=== PATIENT | male | born 1940 | race Caucasian/White ===

== ENCOUNTER 2024-10-01 08:21 | Day surgery (SDC) | payer MEDICARE ==
[2024-09-22 09:23] VITALS: BP 109/46
[~2024-10-01] VITALS: Ht 177.8 cm; Wt 98.0 kg
--- NOTE | ~2024-10-01 | OR ---
[facility] [address] [place], [place] [address] Draft DATE OF OPERATION: 10/01/2024 SURGEON: Narda Alvarez DO PREOPERATIVE DIAGNOSIS: Abdominal pain and change in bowel habits. POSTOPERATIVE DIAGNOSES: 1. Abdominal pain and change in bowel habits with gastroesophageal junction mass and grade C esophagitis. 2. Gastritis. 3. 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 4. Polyp at 75 cm. 5. Polyp at 20 cm. 6. Polyp at 50 cm. 7. Also diverticulosis. PROCEDURE PERFORMED: 1. Esophagogastroduodenoscopy with biopsy of distal esophageal mass and random gastric biopsy. 2. Colonoscopy with cold biopsy of the polyps at 15, 20, and 75 cm. ANESTHESIA: IV sedation. ESTIMATED BLOOD LOSS: Minimal. DRAINS: None. COMPLICATIONS: None. DESCRIPTION OF PROCEDURE: The patient was brought to the GI lab, placed in supine position and after induction of IV sedation through preanesthetized oropharynx and a bite block, the Olympus video endoscope was then introduced through the mouth, directed through the length of esophagus and into the distal esophagus. Upon encountering the distal esophagus, LA grade C esophagitis was noted with ulceration present. There was a mass effect noted in PATIENT NAME: CASE,VANESSA FISHER OPERATIVE REPORT DATE OF : 40 REPORT #: [id number] PHYSICIAN: NARDA ALVAREZ DO PCP: GITA JOHNSON MD REPORT IS CONFIDENTIAL AND NOT TO BE RELEASED WITHOUT AUTHORIZATION [facility] [address] [place], [place] [address] Draft this area as well. Multiple biopsies were taken and passed off the field for pathologic review. Hemostasis was maintained. The scope was advanced in the stomach and general x-rays were carried out. Some punctate gastritis noted distally and the random gastric biopsies were then taken and passed off the field for pathologic review. No hiatal hernia was noted. The scope was retroflexed upon itself and no mass effect noted on retroflexion. Scope was advanced through the pylorus, first and second portion of duodenum, and they were essentially unremarkable. Scope was brought back into the stomach. It should be noted that prior to any biopsies, there were streaks of dark blood in the stomach, but no ulcerations. No other intrinsic or extrinsic masses were appreciated other than mass effects at the GE junction. The stomach was decompressed. Scope was withdrawn. The patient was then placed in the left lateral position, padded satisfactory to anesthesia. An Olympus video colonoscope was then introduced into the rectum under direct visualization and insufflated. The scope was advanced through the rectosigmoid, sigmoid colon, descending colon, transverse colon, into the ascending colon, and cecum. The colon was then insufflated and exploration of the mucosal surface was carried out. The ascending colon and cecum had no intrinsic or extrinsic masses noted, no lesions or ulceration appreciated. Scope was brought back into the transverse colon. No intrinsic or extrinsic masses, lesions, or ulcerations were noted. The scope was then brought back into the descending colon at approximately 75 cm. A flat sessile polyp was noted. Multiple biopsies were taken with the cold biopsy forceps and passed off the field. The scope was then brought back through the descending colon to the sigmoid colon, where at approximately 20 cm and 15 cm, 2 separate sessile polyps were noted. Utilizing a cold biopsy forceps, multiple biopsies were taken and passed off the field for pathologic review. There was some sigmoid diverticulosis present as well, but no other intrinsic or extrinsic mass appreciated. The scope was then brought back into the rectosigmoid where no intrinsic or extrinsic masses were noted. The scope was then removed. The patient tolerated the procedure well, and taken to recovery room in satisfactory condition. DO KASHIF Rene/ELEUTERIO /[id number] Copies: PATIENT NAME: CASEVANESSA OPERATIVE REPORT DATE OF : 40 REPORT #: [id number] PHYSICIAN: NARDA ALVAREZ DO PCP: GITA JOHNSON MD REPORT IS CONFIDENTIAL AND NOT TO BE RELEASED WITHOUT AUTHORIZATION [facility] [address] [place] [address] [place], [place] [address] Draft ~ PATIENT NAME: CASE,VANESSA FISHER OPERATIVE REPORT DATE OF : 40 REPORT #: [id number] PHYSICIAN: NARDA ALVAREZ DO PCP: GITA JOHNSON MD REPORT IS CONFIDENTIAL AND NOT TO BE RELEASED WITHOUT AUTHORIZATION
[~2024-10-01 08:21] MED LIST: ADULT ASPIRIN R81 MG PO; ALLOPURINOL300 MG PO; B COMPLEX1 EACH PO; CEFAZOLIN SODIUM 2 GM/20 ML SYR IV SCH; CENTANY30 GM TOP; COSOPT EYE DROP10 ML; DAILY MULTIVIT1 EAC3 PO; FARXIGA5 MG PO; FUROSEMIDE40 MG PO; IBLOOD GLUCOSE TEST STRIP 1 EA TEST VI PRN; LACTATED RINGER'S 1,000 ML IV SCH; LATANOPROST2.5 ML OPTH; LEVOTHYROXINE75 MC1 PO; LIDOCAINE HCL 1% 5 ML SDV INJ ONE; LIPITOR40 MG PO; LOSARTAN POTASS25 MG PO; MECLIZINE HCL12.5 MG PO; METOPROLOL SUCC25 MG PO; METOPROLOL SUCC50 MG PO; NORVASC10 MG PO; TRELEGY ELLIPT1 EACH IH; VENTOLIN HFA18 GM INH
[2024-10-01 08:40] VITALS: BP 164/72
[2024-10-01] MEDS ORDERED: MELATONIN ER10 MG PO (08:45)
[2024-10-01] MEDS ORDERED: LIDOCAINE HCL 2% 5 ML SDV ONE (09:55)
--- NOTE | 2024-10-01 11:27 | NUR ---
10/01/24 Yarelis7 Sangeetha Alanis 1122-PATIENT ARRIVED TO PACU ON 4L NC RR EVEN ORAL AIRWAY IN PLACE PATIENT NONAROUSABLE. SINUS BRADYCARDIA HR 50'S. IVF INFUSING. ABDOMEN ROUND AND SOFT.
[2024-10-01 12:00] VITALS: BP 138/81
--- NOTE | 2024-10-05 15:05 | PATH ---
[facility] [address] [place], [place] [address] Signed SPECIMEN(S): A GE JUNCTION BIOPSY SPECIMEN(S): B RANDOM GASTRIC BIOPSY SPECIMEN(S): C COLON POLYP AT 75 CM SPECIMEN(S): D COLON POLYP AT 20 CM SPECIMEN(S): E COLON POLYP AT 15 CM SPECIMEN SOURCE: A. GE JUNCTION BIOPSY B. RANDOM GASTRIC BIOPSY C. COLON POLYP AT 75 CM D. COLON POLYP AT 20 CM E. COLON POLYP AT 15 CM CLINICAL HISTORY: Pre: Anemia. Post: Esophagitis/gastritis/distal esophageal mass. FINAL PATHOLOGIC DIAGNOSIS: A. GE junction, biopsies - Mildly inflamed cardio fundic type gastric mucosa, negative for intestinal metaplasia. B. Stomach, random biopsies - Unremarkable gastric mucosa, negative for significant inflammation or evidence of intestinal metaplasia. C. Colon polyp at 75 cm - Hyperplastic colonic mucosa. D. Colon polyp at 20 cm - Hyperplastic polyp. E. Colon polyp at 15 cm - Hyperplastic polyp. AMB MICROSCOPIC EXAMINATION: Histologic sections of all submitted blocks are examined by light microscopy. These findings, together with the gross examination, support the pathologic diagnosis. GROSS DESCRIPTION: A. The specimen, labeled and designated "Case, GE junction biopsy," is received in formalin and consists of two brandon soft tissue fragments, ranging from 0.1 cm. Entirely submitted in (A1). B. The specimen, labeled and designated "Case, random gastric biopsy," is PATIENT NAME: CASE,VANESSA FISHER PATHOLOGY DATE OF : 40 REPORT #: [id number] PHYSICIAN: STACEY PATHOLOGY PCP: GITA JOHNSON MD REPORT IS CONFIDENTIAL AND NOT TO BE RELEASED WITHOUT AUTHORIZATION [facility] [address] [place], [place] [address] Signed received in formalin and consists of one brandon soft tissue fragment, 0.3 cm. Entirely submitted in (B1). C. The specimen, labeled and designated "Case, colon polyp at 75 cm," is received in formalin and consists of one brandon soft tissue fragment, 0.2 cm. Entirely submitted in (C1). D. The specimen, labeled and designated "Case, colon polyp at 20 cm," is received in formalin and consists of one brandon soft tissue fragment, 0.2 cm. Entirely submitted in (D1). E. The specimen, labeled and designated "Case, colon polyp at 15 cm," is received in formalin and consists of one brandon soft tissue fragment, 0.2 cm. Entirely submitted in (E1). JS (under the direct supervision of a pathologist) The Gross Description was prepared using a voice recognition system. The report was reviewed for accuracy; however, sound-alike word errors, addition and/or deletions may occur. If there is any question about this report, please contact Client Services. ADDITIONAL NOTES: Immunohistochemical and/or in situ hybridization studies if performed in this case included appropriate positive controls that reacted as expected. This test was developed and its performance characteristics determined by [facility]. It has not been cleared or approved by the U.S. Food and Drug Administration. The FDA has determined that such clearance or approval is not necessary. This test is used for clinical purposes. It should not be regarded as investigational or for research. [facility] is certified under the Clinical Laboratory Improvement Amendments of 1988 (CLIA) as qualified to perform high complexity clinical laboratory testing. PERFORMING LABORATORY: Technical component was performed by [facility], [address] [place] [address] (CLIA# [id number]). [facility] [address] [facility] [id number] Diagnostician: Donna Jaimes MD Pathologist Electronically Signed 10/05/2024 PATIENT NAME: CASEVANESSA PATHOLOGY DATE OF : 40 REPORT #: [id number] PHYSICIAN: STACEY PATHOLOGY PCP: GITA JOHNSON MD REPORT IS CONFIDENTIAL AND NOT TO BE RELEASED WITHOUT AUTHORIZATION [address] [address] Signed Copies: ~ PATIENT NAME: CASEVANESSA PATHOLOGY DATE OF : 40 REPORT #: [id number] PHYSICIAN: STACEY PATHOLOGY PCP: GITA JOHNSON MD REPORT IS CONFIDENTIAL AND NOT TO BE RELEASED WITHOUT AUTHORIZATION
== END 2024-10-01 12:05 | disposition home or self-care (01) ==
LOC: OPS 08:21 → DS 08:21 → OPS 10:30
PROVIDERS: ATTEND Surgery
PROC: 0DBM8ZX Excision of Descending Colon, Via Natural or Artificial Opening Endoscopic, Diagnostic (ICD-10-PCS; 2024-10-01)
PROC: 0DBN8ZX Excision of Sigmoid Colon, Via Natural or Artificial Opening Endoscopic, Diagnostic (ICD-10-PCS; 2024-10-01)
PROC: 0DB38ZX Excision of Lower Esophagus, Via Natural or Artificial Opening Endoscopic, Diagnostic (ICD-10-PCS; principal; 2024-10-01 10:30)
PROC: 0DB68ZX Excision of Stomach, Via Natural or Artificial Opening Endoscopic, Diagnostic (ICD-10-PCS; 2024-10-01 10:30)
DX: K63.5 Polyp of colon (principal); K29.70 Gastritis, unspecified, without bleeding; K22.10 Ulcer of esophagus without bleeding; K22.89 Other specified disease of esophagus; K57.30 Diverticulosis of large intestine without perforation or abscess without bleeding; I13.0 Hypertensive heart and chronic kidney disease with heart failure and stage 1 through stage 4 chronic kidney disease, or unspecified chronic kidney disease; N18.32 Chronic kidney disease, stage 3b; I50.812 Chronic right heart failure; D63.1 Anemia in chronic kidney disease; I48.91 Unspecified atrial fibrillation; J44.9 Chronic obstructive pulmonary disease, unspecified; M10.9 Gout, unspecified; E78.5 Hyperlipidemia, unspecified; I25.10 Atherosclerotic heart disease of native coronary artery without angina pectoris; E03.9 Hypothyroidism, unspecified; Q60.0 Renal agenesis, unilateral; Z87.891 Personal history of nicotine dependence; Z79.82 Long term (current) use of aspirin; Z79.84 Long term (current) use of oral hypoglycemic drugs; Z79.890 Hormone replacement therapy; Z79.899 Other long term (current) drug therapy
CPT/HCPCS: 00813; J0690; J2003; J2704; J7121